=== PATIENT | female | born 1970 | race Caucasian/White ===

== ENCOUNTER 2017-08-18 07:02 | Day surgery (SDC) | payer BC ==
[~2017-08-18] VITALS: Ht 177.8 cm; Wt 73.5 kg
[~2017-08-18 07:02] MED LIST: BUPROPION XL150 MG PO; ESTRADIOL1 MG PO; XANAX1 MG PO
[2017-08-18] MEDS ORDERED: MUCINEX600 MG PO (07:16)
--- NOTE | 2017-08-18 08:27 | NUR ---
08/18/17 0827 Svetlana Kline 0809 PT ARRIVED IN PACU SLEEPY WITH NO C/O'S. ABD SOFT. 0815 OXGYEN DECREASED TO 2L VIA NC WITH SATS 100%.
--- NOTE | 2017-08-18 09:34 | OR ---
[facility] [address], [place] [address] Signed DATE OF OPERATION: 08/18/2017 SURGEON: Naseem Quijano MD PREOPERATIVE DIAGNOSES: 1. Maternal grandmother with colon cancer. 2. Mother with colon cancer at age 69. 3. Sister and brother with colonic polyps. 4. 24-year-old daughter with colonic polyps. 5. A personal history of colonic polyps in 2014. POSTOPERATIVE DIAGNOSIS: 5 mm sessile polyps in proximal right colon; 65 cm, 30 cm, 25 cm and 18 cm. PROCEDURE: Colonoscopy with hot biopsy. ESTIMATED BLOOD LOSS: None. INDICATIONS: Kristine is a 47-year-old female who presents for a followup colonoscopy. This would be her second colonoscopy. She has a strong family history of colon cancer or polyps as listed above. In fact, she is still trying to get her other daughter to come for a colonoscopy. In the meantime, Kristine has been doing great. She has no lower GI complaints. I gave her a pamphlet on colonoscopy. We looked at that together along with the risks including, but not limited to gas bloating, crampy abdominal pain, bleeding, perforation, requiring surgery, and missed diagnosis. We also discussed the need for IV conscious sedation. She had expressed understanding and wished to proceed. PROCEDURE NOTE: Kristine was taken into our endoscopy suite and placed in the left lateral decubitus position. She was given 6 mg of Versed and 125 mcg of fentanyl to cover the case. A digital rectal exam was performed and this was unremarkable. The adult colonoscope was introduced and advanced under direct visualization of camera into the cecum itself. Her prep was quite good. The scope was then slowly withdrawn. The above-mentioned polyps were easily removed with the help of hot biopsy forceps. We did examine the area around 25 cm and we saw no evidence of any recurrent polyp around that polypectomy scar. The rectum was unremarkable. Upon retroflexion of the scope, she has tiny internal anal skin tags. After this, the gas was suctioned out. The colonoscope removed. Kristine Electronically Signed By: NASEEM QUIJANO MD 08/18/17 0934 PATIENT NAME: KRISTINE SANCHEZ OPERATIVE REPORT DATE OF : 68 REPORT #: [id number] PHYSICIAN: NASEEM QUIJANO MD PCP: MERVIN ZAYAS MD REPORT IS CONFIDENTIAL AND NOT TO BE RELEASED WITHOUT AUTHORIZATION [facility] [address] [place] [id number] Signed tolerated the procedure quite well. RECOMMENDATIONS: I will see Kristine back in my office in 7 to 14 days to review her results. It looks like she will need another colonoscopy in 5 years. MD ABRAHAM Pantoja/KEISHAL /[id number] cc: MD Mervin Pantoja MD Copies: NASEEM QUIJANO MD, JONATHAN MD ~ Electronically Signed By: NASEEM QUIJANO MD 08/18/17 0934 PATIENT NAME: KRISTINE SANCHEZ OPERATIVE REPORT DATE OF : 68 REPORT #: [id number] PHYSICIAN: NASEEM QUIJANO MD PCP: MERVIN ZAYAS MD REPORT IS CONFIDENTIAL AND NOT TO BE RELEASED WITHOUT AUTHORIZATION
== END 2017-08-18 09:00 | disposition home or self-care (01) ==
LOC: OPS 07:02 → DS 07:02 → OPS 08:15
PROVIDERS: Colon & Rectal Surgery
PROC: 0DBE8ZZ Excision of Large Intestine, Via Natural or Artificial Opening Endoscopic (ICD-10-PCS; 2017-08-18)
PROC: 0DBF8ZZ Excision of Right Large Intestine, Via Natural or Artificial Opening Endoscopic (ICD-10-PCS; principal; 2017-08-18 08:15)
DX: Z12.11 Encounter for screening for malignant neoplasm of colon (principal); K63.5 Polyp of colon; K64.4 Residual hemorrhoidal skin tags; Z80.0 Family history of malignant neoplasm of digestive organs; Z86.010 Personal history of colon polyps; Z83.71 Family history of colonic polyps; Z98.890 Other specified postprocedural states; Z87.891 Personal history of nicotine dependence; Z79.899 Other long term (current) drug therapy
CPT/HCPCS: 99153; G0500; J2250; J3010; J7120

== ENCOUNTER 2022-05-15 06:10 | Day surgery (SDC) | payer BC ==
[~2022-05-15] VITALS: Ht 182.9 cm; Wt 73.9 kg
[~2022-05-15 06:10] MED LIST changes: +MUCINEX600 MG PO
--- NOTE | 2022-05-15 08:15 | NUR ---
05/15/22 0815 Crystal Simons 0812 PATIENT ARRIVES TO PACU SLEEPING. OPENS EYES WITH VERBAL STIMULI, BACK TO SLEEP WHEN NOT STIMULATED. RESP EVEN AND UNLABORED, NC AT 3 LITERS TURNED OFF.
--- NOTE | 2022-05-15 09:04 | OR ---
[facility] [address], [place] [address] Signed DATE OF OPERATION: 05/14/2022 SURGEON: Naseem Sullivan MD PREOPERATIVE DIAGNOSES: 1. Maternal grandmother with colon cancer. 2. Mother with colon cancer at age 69. 3. Sister and brother with colonic polyps. 4. Daughter with colonic polyps, age 24. 5. Personal history of colonic polyps, age 44 in 2014. POSTOPERATIVE DIAGNOSES: 1. 4 mm polyp at 35 cm. 2. 7 mm polyp at 38 cm. 3. 7 mm polyp, proximal right colon. 4. Minimal sigmoid diverticulosis. PROCEDURE: Colonoscopy with hot biopsy. ESTIMATED BLOOD LOSS: None. INDICATIONS: Monika is a 52-year-old female, asked to see me for her 3rd colonoscopy. She has no lower GI complaints. We know she has a strong family of colon cancer and polyps as stated above. Monika came at age 44 in 2014 and had hyperplastic polyps along with one 8 mm tubular adenomatous polyp removed. She always does well with Versed and fentanyl. She came back three years later in 2018 at age of 47. She had five hyperplastic polyps removed, all 5 mm or less in diameter. Again, she did well with Versed and fentanyl. We asked her to return in 5 years. In the office, I gave her a pamphlet on colonoscopy. She recalls the test quite well. There is risk including, but not limited to gas bloating, crampy abdominal pain, bleeding, perforation requiring surgery, and missed diagnosis. We also reviewed the need for the IV conscious sedation. She had expressed understanding and wished to proceed. PROCEDURE NOTE: Monika was taken into our endoscopy suite and placed in the left lateral decubitus position. She was given IV sedation with 7 mg of Versed and 100 mcg of fentanyl. A digital rectal exam was performed and this was unremarkable. She has good sphincter Electronically Signed By: NASEEM SULLIVAN MD 05/15/22 0904 PATIENT NAME: MONIKA SANCHEZ OPERATIVE REPORT DATE OF : 68 REPORT #: [id number] PHYSICIAN: NASEEM SULLIVAN MD PCP: NO PRIMARY CARE PHYSICIAN REPORT IS CONFIDENTIAL AND NOT TO BE RELEASED WITHOUT AUTHORIZATION [facility] [address], [place] [address] Signed tone and there were no external hemorrhoids. There were no masses. The adult colonoscope was introduced and advanced under direct visualization of the camera. It took a little extra sedation and abdominal compression in order to advance the scope up into the cecum itself. As always, her prep was quite excellent. We could easily see the appendiceal orifice and the ileocecal valve. The scope was then slowly withdrawn. We took pictures throughout for photodocumentation. The above-mentioned polyps were biopsied and destroyed completely with the hot biopsy forceps. The polyp at 7 mm was on the back edge of the fold, so our biopsy was quite small and we just cauterized the rest of that lesion. On this occasion, she did have some diverticula in the sigmoid colon. They were small in size few in number, and scattered about. After this, the scope had been retroflexed in the rectum and there was no additional pathology noted above the anal canal. The gas was then suctioned out and the colonoscope removed. Monika tolerated the procedure quite well. RECOMMENDATIONS: I will see Monika back in my office in 7 to 14 days to review her results. Naseem Sullivan MD ALB/MODL /[id number] cc: Naseem Sullivan MD Copies: NASEEM SULLIVAN MD ~ Electronically Signed By: NASEEM SULLIVAN MD 05/15/22 0904 PATIENT NAME: MONIKA SANCHEZ OPERATIVE REPORT DATE OF : 68 REPORT #: [id number] PHYSICIAN: NASEEM SULLIVAN MD PCP: NO PRIMARY CARE PHYSICIAN REPORT IS CONFIDENTIAL AND NOT TO BE RELEASED WITHOUT AUTHORIZATION
--- NOTE | 2022-05-15 13:32 | NUR ---
PT TAKEN FOR SCOPE, CONNECTED WITH HER ROBERT. PT HAS HAD SCOPES BEFORE HE WILL WAIT IN CAR. DS STAFF HAVE HIS PHONE # AT [facility] ELL[facility]
== END 2022-05-15 09:05 | disposition home or self-care (01) ==
LOC: OPS 06:10 → DS 06:10 → OPS 07:30
PROVIDERS: ATTEND Colon & Rectal Surgery
PROC: 0DBK8ZZ Excision of Ascending Colon, Via Natural or Artificial Opening Endoscopic (ICD-10-PCS; principal; 2022-05-15 07:30)
DX: Z12.11 Encounter for screening for malignant neoplasm of colon (principal); K57.30 Diverticulosis of large intestine without perforation or abscess without bleeding; Z80.0 Family history of malignant neoplasm of digestive organs; Z83.71 Family history of colonic polyps; Z86.010 Personal history of colon polyps; F32.A Depression, unspecified; E78.00 Pure hypercholesterolemia, unspecified; K63.5 Polyp of colon
CPT/HCPCS: 99153; G0500; J2250; J3010; J7121